=== PATIENT | male | born 1990 | race African-American/Black ===

== ENCOUNTER 2023-08-22 23:58 | Emergency (ER) | payer OTHER ==
[2023-08-23 00:06] VITALS: BP 167/94; PULSE 84; RESP 18; TEMP 97.6; BMI 31.3
[2023-08-23] MEDS ORDERED: ACETAMINOPHEN 325 MG TABLET (FP) PO ONE (01:55)
[2023-08-23] MEDS ORDERED: ACETAMINOPHEN 325 MG TABLET (FP) ONE (02:12)
[2023-08-23 03:10] LABS: BASO % 0.7 % (0-2.0); EOS % 1.9 % (0-4.5); HEMATOCRIT 50.6 % (35.4-49); HEMOGLOBIN 16.5 GM/dL (11.7-16.9); LYMPH % 30.1 % (8-40); MCHC 32.6 g/dl (32.0-35.9); MEAN CELL VOLUME 82.8 fl (80-96); MEAN PLT VOLUME 7.5 fl (7.5-11.1); MONO % 5.8 % (3.8-10.2); NEUT % 61.5 % (42.8-82.8); PLATELET COUNT 431 10^3/uL (134-434); RDW 14.3 % (11.9-15.9); WHITE BLOOD COUNT 10.1 K/mm3 (4.0-10.0)
[2023-08-23 03:38] LABS: POTASSIUM 4.1 mmol/L (3.5-5.1)
[2023-08-23 03:40] LABS: ALBUMIN 4.6 g/dl (3.4-5.0); BLOOD UREA NITROGEN 7.9 mg/dL (7-18); CALCIUM 9.6 mg/dL (8.5-10.1)
[2023-08-23 03:43] LABS: CREATININE 1.1 mg/dL (0.55-1.3)
[2023-08-23 03:45] LABS: BILIRUBIN,TOTAL 0.8 mg/dL (0.2-1); TOT PROT 8.7 g/dl (6.4-8.2)
== END 2023-08-23 04:24 | disposition home or self-care (01) ==
LOC: JER 23:58
DX: I10 Essential (primary) hypertension (principal); R51.9 Headache, unspecified; G93.0 Cerebral cysts
CPT/HCPCS: 36415; 70450-TC; 80053; 83735; 84439; 84443; 84484; 85025; 93005; 93010; 99285-25